=== PATIENT | female | born 1955 | race Caucasian/White ===

== ENCOUNTER 2018-03-10 09:47 | Inpatient (IN) | END 2018-03-15 16:31 | disposition home health service (06) | DRG 871 ==

== ENCOUNTER 2018-03-25 13:34 | Inpatient (IN) | END 2018-03-26 21:20 | disposition short-term general hospital (02) | DRG 872 ==

== ENCOUNTER 2018-06-23 20:30 | Inpatient (IN) | payer OTHER ==
[~2018-06-23] VITALS: Ht 157.5 cm; Wt 84.1 kg
[~2018-06-23 20:30] MED LIST: BENA40TA56 PO; FER325 PO; FURO20TA3 PO; GABA300C16 PO; LEVO50TA7 PO; MTF1000T PO; NPH,100I5 SQ; OMEP20CA16 PO; PROP10TA6 PO; SIMV20TA PO
[2018-06-23] MEDS ORDERED: SODIUM CHLORIDE 0.9% 1L BAG IV* STA (21:34)
--- NOTE | 2018-06-23 22:00 | ERD ---
ER Documentation Chief Complaint Chief Complaint FLU SYMPTOMS/ HEMOPTYSIS HPI This is a 63-year-old female with a past medical history of hypertension, hyperlipidemia, diabetes, CHF, GERD, hypothyroidism who is presenting with several days of feeling generally unwell with fever, chills, full body aches, nausea with multiple episodes of nonbilious nonbloody vomiting, decreased appetite, waxing and waning episodes of confusion. The patient's daughter and her child was recently sick with the flu, and they have been around the patient. The patient is currently alert and oriented. The patient also reports suprapubic abdominal pain with dysuria, urinary frequency and urgency. She denies diarrhea. The patient has also had a productive cough of mostly clear sputum. However, she apparently had an episode of coughing up phlegm with flecks of blood this evening, which is ultimately what prompted them to bring her to the emergency department. The patient has not had any recent travel. She does not have a history of tuberculosis. The patient does not endorse any alleviating or exacerbating factors. The patient has had no headache or vision changes. The patient does not endorse neck or back pain. The patient denies lightheadedness or dizziness. The patient has had no chest pain or trouble breathing. The patient has had no focal deficits. The patient has had no weakness or numbness or tingling to the face or extremities. ROS All systems reviewed and are negative except as per history of present illness. Medications Home Meds Reported Medications Propranolol Hcl* (Propranolol Hcl*) 10 Mg Tablet, 10 MG PO BID, TAB 03/25/18 NPH, Human Insulin Isophane (Humulin N Kwikpen) 100 Unit/1 Ml Insuln.pen, 30 UNIT SQ BID, EA 03/10/18 Metformin* (Glucophage*) 1,000 Mg Tablet, 1000 MG PO BID, #60 TAB 03/10/18 Furosemide* (Furosemide*) 20 Mg Tablet, 20 MG PO DAILY, #60 TAB 03/10/18 Levothyroxine Sodium* (Levothyroxine Sodium*) 50 Mcg Tablet, 50 MCG PO BEFORE BREAKFAST, #30 TAB 03/10/18 Ferrous Sulfate* (Ferrous Sulfate*) 325 Mg Tabec, 325 MG PO BID, TAB 03/10/18 Benazepril Hcl* (Benazepril Hcl*) 40 Mg Tablet, 40 MG PO DAILY, #30 TAB 03/10/18 Simvastatin* (Zocor*) 20 Mg Tablet, 20 MG PO QHS, #30 TAB 03/10/18 Omeprazole* (Omeprazole*) 20 Mg Capsule.dr, 20 MG PO AC BREAKFAST, #30 CAP 03/10/18 Gabapentin* (Gabapentin*) 300 Mg Capsule, 300 MG PO TID, #90 CAP 03/10/18 Allergies Allergies: Coded Allergies: Penicillins (Verified Allergy, Unknown, 03/25/18) PMhx/Soc History of Surgery: Yes (CHOLECYSTECTOMY) Anesthesia Reaction: Yes (RASH) Hx Neurological Disorder: No Hx Respiratory Disorders: Yes (ASTHMA) Hx Cardiac Disorders: Yes (Hypertension, hyperlipidemia, diabetes) Hx Psychiatric Problems: Yes (ANXIETY) Hx Miscellaneous Medical Probl: Yes (Hypothyroidism, GERD, diabetic neuropathy) Hx Alcohol Use: No Hx Substance Use: No Hx Tobacco Use: No Smoking Status: Never smoker FmHx Family History: No diabetes Physical Exam Vitals Vital Signs Date Temp Pulse Resp B/P (MAP) Pulse Ox O2 O2 Flow FiO2 Time Delivery Rate 06/23/18 Nasal 22:10 Cannula 06/23/18 102.6 99 18 162/70 96 Room Air 21:28 (100) 06/23/18 102.7 85 18 162/70 95 20:40 (100) Physical Exam Const: No apparent distress, well-developed, well-nourished Head: Normocephalic, Atraumatic Eyes: Normal Conjunctiva. Extraocular movements intact. Pupils equal, round and reactive to light ENT: Normal External Ears, Nose and Mouth. Neck: Full range of motion. No meningismus. Resp: Clear to auscultation bilaterally, No wheezes, rales or rhonchi Cardio: Regular rate and rhythm. No murmurs, rubs or gallops Abd: Soft, non tender, non distended. Normal bowel sounds Skin: No petechiae or rashes Back: No midline tenderness. No CVA tenderness Ext: No cyanosis, or edema Neur: Awake and alert, oriented 4. Cranial nerves intact. No facial droop. Normal strength, sensation and coordination. Psych: Normal Mood and Affect Result Diagram: 06/23/186 06/23/186 Results 24 hrs Laboratory Tests Test 06/23/18 22:16 06/23/18 22:40 06/24/18 01:13 White Blood Count 7.6 10^3/ul Red Blood Count 4.90 10^6/ul Hemoglobin 15.0 g/dl Hematocrit 45.2 % Mean Corpuscular Volume 92.2 fl Mean Corpuscular Hemoglobin 30.6 pg Mean Corpuscular 33.2 g/dl Hemoglobin Concent Red Cell Distribution Width 16.5 % Platelet Count 97 10^3/UL Mean Platelet Volume 11.8 fl Immature Granulocytes % 0.300 % Neutrophils % 76.9 % Lymphocytes % 10.5 % Monocytes % 11.5 % Eosinophils % 0.3 % Basophils % 0.5 % Nucleated Red Blood Cells % 0.0 /100WBC Immature Granulocytes # 0.020 10^3/ul Neutrophils # 5.9 10^3/ul Lymphocytes # 0.8 10^3/ul Monocytes # 0.9 10^3/ul Eosinophils # 0.0 10^3/ul Basophils # 0.0 10^3/ul Nucleated Red Blood Cells # 0.0 10^3/ul Prothrombin Time 14.7 Sec Prothrombin Time Ratio 1.1 INR International Normalized Ratio 1.14 Activated Partial Thromboplast 34.8 Sec Time Sodium Level 134 mmol/L Potassium Level 4.3 mmol/L Chloride Level 99 mmol/L Carbon Dioxide Level 26 mmol/L Anion Gap 9 Blood Urea Nitrogen 13 mg/dl Creatinine 0.58 mg/dl Est Glomerular Filtrat Rate mL/min > 60 mL/min Glucose Level 150 mg/dl Calcium Level 9.4 mg/dl Total Bilirubin 1.9 mg/dl Direct Bilirubin 0.00 mg/dl Indirect Bilirubin 1.9 mg/dl Aspartate Amino Transf (AST/SGOT) 71 IU/L Alanine 41 IU/L Aminotransferase (ALT/SGPT) Alkaline Phosphatase 162 IU/L Troponin I < 0.012 ng/ml Total Protein 9.3 g/dl Albumin 4.0 g/dl Globulin 5.30 g/dl Albumin/Globulin Ratio 0.75 POC Venous Lactate 2.2 mmol/L 2.2 mmol/L Current Medications Medications Dose Sig/Magali Start Time Status Last (Trade) Ordered Route PRN Stop Time Admin Dose Reason Admin Sodium 2,460 ml BOLUS OVER 2 06/23/18 DC 06/23/18 Chloride HOURS STAT 21:34 21:34 (NS) IV* 06/23/18 21:35 150 ml @ ONCE ONCE 06/23/18 DC 06/23/18 Levofloxacin/ 100 mls/hr IVPB 23:30 23:32 Dextrose 06/24/18 00:59 Oseltamivir 75 mg ONCE ONCE 06/23/18 DC 06/23/18 Phosphate PO 23:30 23:31 (Tamiflu) 06/23/18 23:31 Ketorolac 15 mg ONCE STAT 06/24/18 DC Tromethamine IV 01:16 (Toradol) 06/24/18 01:18 1,000 mg ONCE STAT 06/24/18 DC Acetaminophen PO 01:16 (Tylenol 06/24/18 01:18 Tab) Procedures/MDM MDM The patient's presentation warrants further investigation. Previous medical records, if available, were reviewed. LABS The patient's laboratory testing was obtained and reviewed. No emergent treatment was required unless described below. CBC: No E/o of systemic infection or severe anemia. Thrombocytopenia CMP: No E/o severe acidosis or alkalosis or renal failure or diabetic ketoacidosis. Indirect hyperbilirubinemia and transaminitis. PT/INR: No E/o significant coagulopathy Lactate: Mildly elevated x2 Troponin: No E/o acute ischemia Urine: No E/o acute infection or hematuria Influenza: Negative EKG EKG read by me: Rate/Rhythm: Regular rate and rhythm at a rate of 91 bpm Intervals: Normal [place]: Normal Impression: No evidence of acute ischemia or arrhythmia IMAGING Imaging and Radiology interpretation reviewed. CXR FINDINGS: Mildly increased interstitial edema/infiltrate. No pleural effusion. No pneumothorax. Heart size is magnified. Vascular calcifications of the aorta are present compatible with atherosclerosis. IMPRESSION: Mildly increased interstitial edema/infiltrate. Electronically viewed and signed by Kit Martinez MD, on 06/23/2018 23:01 TREATMENT/DISPOSITION The patient presents with flulike symptoms. There is evidence of possible infiltrates on the chest x-ray. Given the report of an episode of hemoptysis, there is a possibility of pneumonia. The patient was given a dose of Levaquin in the emergency department. The patient was evaluated for the possibility of sepsis. The patient did have a fever, but her vital signs were otherwise unremarkable and she had no leukocytosis. The patient technically does not meet criteria for systemic inflammatory response. That said, the patient did have a mildly elevated lactic acidosis and is thrombocytopenic. The patient does meet criteria for severe sepsis. A septic workup was completed. All the patient's influenza studies are negative, the patient's symptoms are very concerning for the flu, especially since she had multiple sick contacts that were diagnosed with the flu this week. The patient will also be given a dose of Tamiflu. The patient's fever was treated with Toradol and Tylenol. SEPSIS NOTE SIRS Criteria: Fever only Infectious source: Pneumonia versus influenza End organ damage indicated by: Lactate > 2.0 mmol/L, Plt < 100 SEPSIS MANAGEMENT Time to recognize sepsis: 2300 Time to recognize severe sepsis: 2300 Time to recognize septic shock: No septic shock at this time. 3 HOUR BUNDLE Blood cultures x 2 before abx: Yes 30 ml/kg NS bolus completed Initial lactate 2.2 Repeat lactate 2.2 SEPTIC SHOCK ASSESSMENT: NO lactic acid > 4.0 NO persistent hypotension (SBP < 90 or 40 mmHg drop, MAP < 65) despite 30 L/kg IV fluid bolus CRITICAL CARE Critical care time 35 minutes Emergent fluid management while maintaining close respiratory support. Provision of immediate and broad-spectrum antibiotic therapy. Simultaneous assessment for possible sources in order to direct targeted therapy. Consideration for invasive and chemical support to prevent cardiopulmonary collapse. Critical care time is independent of procedures performed. ADMISSION The patient will be admitted to panel in accordance with the patient's insurance. The patient was accepted by Dr. Arvizu at 1:18 AM on June 24, 2018. Disclaimer: Inadvertent spelling and grammatical errors are likely due to EHR/dictation software use and do not reflect on the overall quality of patient care. Note that the electronic time recorded on this note does not necessarily reflect the actual time of the patient encounter. Departure Diagnosis: Primary Impression: Severe sepsis Additional Impressions: Flu-like symptoms Myalgia Fever and chills Nausea & vomiting Vomiting type: unspecified Vomiting Intractability: non-intractable Qualified Codes: R11.2 - Nausea with vomiting, unspecified Suprapubic pain Dysuria Hemoptysis Lactic acidosis Thrombocytopenia Hyperbilirubinemia Transaminitis Condition: Serious TED TUTTLE MD Jun 23, 2018 21:59
[2018-06-23] MEDS ORDERED: OSELTAMIVIR 75 MG CAP PO ONE (23:30)
[2018-06-23] MEDS ORDERED: LEVOFLOXACIN 750MG/D5W (PMX) 150 ML IVPB ONE (23:30)
[2018-06-24] VITALS (8 sets, daily range): BP systolic 112–134; BP diastolic 55–80; PULSE 66–81; RESP 18–20; Ht 157.5 cm; Wt 84.1 kg
[2018-06-24] MEDS ORDERED: KETOROLAC 15 MG INJ IV STA (01:16)
[2018-06-24] MEDS ORDERED: ACETAMINOPHEN 500 MG TAB PO STA (01:16)
[2018-06-24] MEDS ORDERED: ACETAMINOPHEN 325 MG TAB PO PRN ×2 (01:30→02:30)
[2018-06-24] MEDS ORDERED: ONDANSETRON 4 MG INJ IV PRN ×2 (01:30→02:30)
[2018-06-24] MEDS ORDERED: SOD CHLORIDE 0.9% 1,000 ML IV SCH (02:27)
[2018-06-24] MEDS ORDERED: DOCUSATE SODIUM 100 MG CAP PO PRN (02:30)
[2018-06-24] MEDS ORDERED: BISACODYL (EC) 5 MG TAB PO PRN (02:30)
[2018-06-24] MEDS ORDERED: NACL 0.9% 3 ML SYG IV SCH (02:30)
[2018-06-24] MEDS ORDERED: HYDROCODONE/APAP (5/325) TAB PO PRN (02:30)
--- NOTE | 2018-06-24 02:34 | HP ---
Date/Time of Note Date/Time of Note DATE: 06/24/18 TIME: 02:32 Assessment/Plan VTE Prophylaxis SCD applied (from Nsg): Yes Pharmacological prophylaxis: NA/contraindicated Pharm contraindication: low risk/ambulating Lines/Catheters IV Catheter Type (from Nrsg): Saline Lock Assessment/Plan Hospital Course This is a 63-year-old female being admitted to the telemetry floor for: #1 severe sepsis: Multifactorial secondary to pneumonia/urinary tract infection. Patient was started on Levaquin 750 mg IV daily. Will await culture results. Previous urine culture Positive for Morganella morganii which was sensitive to Levaquin. Trend lactic acid level initially was 2.2 #2 cirrhosis with history of varices and portal hypertension: Patient at the current time does not appear to be encephalopathic. Possibly secondary to previous alcohol use. Hepatitis serology appears normal from previous admission. Continue propranolol #3 history of epilepsy: Appear to be on Keppra during previous admissions [facility] er currently is not on her EMR. I will continue her on her previous dose. We will need to confirm whether in the morning whether she is indeed still taking this or not. #4. Diabetes: We will check hemoglobin A1c, insulin sliding scale, resume home insulin #5. Hypertension: Resume home medications #6. Morbid obesity: We will check hemoglobin A1c , TSH, #7. Hypothyroidism: We will check TSH, resume levothyroxine #8. History of CVA: Continue statin #9. 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 Coagulopathy secondary to liver disease Prophylaxis: SCDs, Protonix Result Diagram: 06/23/18221506/23/186 Results 24hrs Laboratory Tests Test 06/23/18 22:16 06/23/18 22:40 06/24/18 01:13 White Blood Count 7.6 Red Blood Count 4.90 # Hemoglobin 15.0 # Hematocrit 45.2 # Mean Corpuscular Volume 92.2 Mean Corpuscular Hemoglobin 30.6 Mean Corpuscular Hemoglobin Concent 33.2 Red Cell Distribution Width 16.5 H Platelet Count 97 #L Mean Platelet Volume 11.8 H Immature Granulocytes % 0.300 Neutrophils % 76.9 Lymphocytes % 10.5 L Monocytes % 11.5 H Eosinophils % 0.3 Basophils % 0.5 Nucleated Red Blood Cells % 0.0 Immature Granulocytes # 0.020 Neutrophils # 5.9 Lymphocytes # 0.8 Monocytes # 0.9 Eosinophils # 0.0 Basophils # 0.0 Nucleated Red Blood Cells # 0.0 Prothrombin Time 14.7 Prothrombin Time Ratio 1.1 INR International Normalized Ratio 1.14 Activated Partial Thromboplast Time 34.8 Sodium Level 134 L Potassium Level 4.3 Chloride Level 99 Carbon Dioxide Level 26 Anion Gap 9 Blood Urea Nitrogen 13 Creatinine 0.58 Est Glomerular Filtrat Rate mL/min > 60 Glucose Level 150 Calcium Level 9.4 Total Bilirubin 1.9 H Direct Bilirubin 0.00 Indirect Bilirubin 1.9 H Aspartate Amino Transf (AST/SGOT) 71 H Alanine Aminotransferase (ALT/SGPT) 41 Alkaline Phosphatase 162 H Troponin I < 0.012 Total Protein 9.3 H Albumin 4.0 Globulin 5.30 H Albumin/Globulin Ratio 0.75 POC Venous Lactate 2.2 *H 2.2 *H HPI/ROS Admit Date/Time Admit Date/Time Hx of Present Illness Chief complaint: Fever chills body aches cough, dysuria This is a 63-year-old female with several days of feeling generally unwell with fever, chills, full body aches, nausea with multiple episodes of nonbilious nonbloody vomiting, decreased appetite, waxing and waning episodes of confusion. The patient's daughter and her child was recently sick with the flu, and they have been around the patient. The patient is currently alert and oriented. The patient also reports suprapubic abdominal pain with dysuria, urinary frequency and urgency. She denies diarrhea. The patient has also had a productive cough of mostly clear sputum. However, she apparently had an episode of coughing up phlegm with flecks of blood this evening, which is ultimately what prompted them to bring her to the emergency department. The patient has not had any recent travel. The patient does not endorse any alleviating or exacerbating factors. Allergies: Penicillin Medications: See Jun Const: As per HPI Eyes : No pain discharge or redness or change in visual acuity ENT: No pain, sore throat, congestion, congestion, dysphagia or discharge Respiratory: As per HPI Cardiovascular: No chest pain, palpitation, PND, or edema GI : no change in appetite, abdominal pain, nausea, vomiting, diarrhea, constipation, or change in the color his stool Genitourinary: As per HPI Musculoskeletal: As per HPI Skin: No rash, bruising or hives Neuro: No headache, dizziness, syncope, seizure, focal weakness Endocrine: No polyuria, polydipsia, temperature intolerance Psych: No hallucination, depression, anxiety or suicidal ideation PMH/Family/Social Past Medical History gastric ulcers, diabetes mellitus, epilepsy, dyslipidemia, hypertension, Cirrhosis with history of varices and portal hypertension Medications Current Medications Ondansetron HCl (Zofran Inj) 4 mg ER BRIDGE PRN IV NAUSEA/VOMITING; Start 06/24/18 at 01:30; Stop 06/25/18 at 01:29 Acetaminophen (Tylenol Tab) 650 mg ER BRIDGE PRN PO .MILD PAIN 1-3 OR TEMP; Start 06/24/18 at 01:30; Stop 06/25/18 at 01:29 Propranolol HCl (Inderal) 10 mg BID PO ; Start 06/24/18 at 09:00; Status UNV Coded Allergies: Penicillins (Verified Allergy, Unknown, 03/25/18) Past Surgical History Past Surgical Hx: appendectomy, cholecystectomy Family History Significant Family History: no pertinent family hx Social History Alcohol Use: sober Smoking Status: Never smoker Drug Use: none Exam/Review of Systems Vital Signs Vitals Vital Signs Date Temp Pulse Resp B/P (MAP) Pulse Ox O2 O2 Flow FiO2 Time Delivery Rate 06/24/18 102.8 01:28 06/24/18 97 142/94 98 Nasal 2.0 01:00 (110) Cannula 06/23/18 18 21:28 Intake and Output 06/23/18 06/23/18 06/24/18 1515:00 23:00 07:00 IntakeIntake Total 2460 ml BalanceBalance 2460 ml Exam Exam General: Patient is currently lying in bed in no acute distress, she does report suprapubic pain HEENT: Atraumatic, normocephalic. The pupils are equal, round and reactive. Extraocular motor are intact Neck: Supple with full range of motion. No rigidity or meningismus Chest: Nontender Lungs: Clear to auscultation bilaterally no crackles rales or wheezing Heart: Normal S1-S2, Regular rhythm and rate. No murmur, S3, or S4 Abdomen: Soft , nontender, nondistended , bowel sounds are present. No guarding no rebound tenderness , No masses or organomegaly. No costovertebral temporal angle mass Extremities: Normal to inspection, no edema no cyanosis Genitourinary: Suprapubic tenderness to palpation Neurologic: Normal mental status, speech normal, cranial nerves II through XII are intact, motor and sensory are intact, Additional Comments PROCEDURE: XR Chest. CLINICAL INDICATION: Chest pain, sepsis TECHNIQUE: Single frontal radiograph of the chest. COMPARISON: CHEST 03/25/2018 FINDINGS: Mildly increased interstitial edema/infiltrate. No pleural effusion. No pneumothorax. Heart size is magnified. Vascular calcifications of the aorta are present compatible with atherosclerosis. IMPRESSION: Mildly increased interstitial edema/infiltrate. RPTAT: AADD .Kit Martinez MD, MD Date Time Electronically viewed and signed by .Kit Martinez MD, MD on 06/23/2018 23:01 .B/ CC: TED TUTTLE MD [id number] EKG Rate/Rhythm: Regular rate and rhythm at a rate of 91 bpm Intervals: Normal [place]: Normal Impression: No evidence of acute ischemia or arrhythmia VALENTINE STROUD Jun 24, 2018 02:33
[2018-06-24] MEDS ORDERED: GLUCAGON 1 MG INJ IM PRN (03:00)
[2018-06-24] MEDS ORDERED: GLUCOSE GEL 15 GRAM TUBE BUCCAL PRN (03:00)
[2018-06-24] MEDS ORDERED: DEXTROSE 50% 50 ML SYRINGE IV PRN ×2 (03:00)
[2018-06-24] MEDS ORDERED: GLUCOSE GEL 15 GRAM TUBE PO PRN ×2 (03:00)
[2018-06-24] MEDS: PANTOPRAZOLE (EC) 40 MG TAB PO SCH (06:32)
[2018-06-24] MEDS: LEVOTHYROXINE 50 MCG TAB PO SCH (06:32)
[2018-06-24] MEDS ORDERED: NON-FORMULARY/PATIENT OWN MED (Omeprazole* 20 MG) PO SCH (07:00)
[2018-06-24] MEDS: INSULIN ASPART [NOVOLOG] 3 ML PEN SC SCH ×4 (07:55→21:00)
[2018-06-24] MEDS: BENAZEPRIL 40 MG TAB PO SCH (08:37)
[2018-06-24] MEDS: LEVETIRACETAM 500 MG TAB PO SCH ×2 (08:37→20:49)
[2018-06-24] MEDS: GABAPENTIN 300 MG CAP PO SCH ×3 (08:37→20:48)
[2018-06-24] MEDS: FERROUS SULFATE (EC) 325 MG TAB PO SCH ×2 (08:37→20:48)
[2018-06-24] MEDS: PROPRANOLOL 10 MG TAB PO SCH ×2 (08:37→20:49)
[2018-06-24] MEDS ORDERED: NPH HUMAN INSULIN ISOPHANE SQ SCH (09:00)
[2018-06-24] MEDS: NPH, HUMAN INSULIN ISOPHANE 3ML VIAL SC SCH ×2 (11:13→21:12)
[2018-06-24] MEDS ORDERED: MAGNESIUM SULFATE 2 GM/50 ML 50 ML IVPB ONE (12:00)
--- NOTE | 2018-06-24 12:00 | PN ---
Date/Time of Note Date/Time of Note DATE: 06/24/18 TIME: 11:53 Assessment/Plan VTE Prophylaxis Risk score (from Ns)>0 risk: 6 [place] [facility] [place] Pharmacological prophylaxis: NA/contraindicated Pharm contraindication: low risk/ambulating Lines/Catheters IV Catheter Type (from [facility]): [place] Assessment/Plan Assessment/Plan This is a 63-year-old woman with cirrhosis who presents with sepsis likely from UTI #Urinary tract infection # severe sepsis: - Sepsis likely due to UTI - No infiltrates on CXR concerning for lobar pneumonia. - Awaiting urine culture results. - Lactate moderately elevated - Currently appears euvolemic. Will cancel maintenance fluids due to cirrhosis. # cirrhosis with history of varices and portal hypertension: - Patient at the current time does not appear to be encephalopathic. - Possibly secondary to previous alcohol use versus CASTELLANO, hepatitis serology appears normal from previous admission. - Continue propranolol # history of epilepsy: - Appear to be on Keppra during previous admissions however currently is not on her EMR. 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 Patient sleeping comfortably. She does report occasional wheeze plus dry cough. Otherwise feeling well overall. Exam/Review of Systems Exam Vitals Vital Signs Date Temp Pulse Resp B/P (MAP) Pulse Ox O2 O2 Flow FiO2 Time Delivery Rate 06/24/18 81 08:13 06/24/18 98.1 18 120/80 93 Room Air 07:55 (93) 06/24/18 2.0 05:00 Intake and Output 06/23/18 06/23/18 06/24/18 1515:00 23:00 07:00 IntakeIntake Total 2460 ml OutputOutput Total 125 ml BalanceBalance 2335 ml Exam General: Obese woman lying bed sleeping comfortably, arousable. HEENT: Atraumatic, normocephalic. The pupils are equal, round and reactive. Extraocular motor are intact Neck: Supple with full range of motion. No rigidity or meningismus Chest: Nontender Lungs: Clear to auscultation bilaterally no crackles rales or wheezing Heart: Normal S1-S2, Regular rhythm and rate. No murmur, S3, or S4 Abdomen: Soft , nontender, nondistended , bowel sounds are present. No guarding no rebound tenderness , Extremities: Normal to inspection, trace bilateral LE edema Results Results 24hrs Laboratory Tests Test 06/23/18 22:16 06/23/18 22:40 06/24/18 01:13 06/24/18 03:20 White Blood Count 7.6 Red Blood Count 4.90 # Hemoglobin 15.0 # Hematocrit 45.2 # Mean Corpuscular 92.2 Volume Mean Corpuscular 30.6 Hemoglobin Mean Corpuscular 33.2 Hemoglobin Concent Red Cell 16.5 H Distribution Width Platelet Count 97 #L Mean Platelet Volume 11.8 H Immature 0.300 Granulocytes % Neutrophils % 76.9 Lymphocytes % 10.5 L Monocytes % 11.5 H Eosinophils % 0.3 Basophils % 0.5 Nucleated Red Blood 0.0 Cells % Immature 0.020 Granulocytes # Neutrophils # 5.9 Lymphocytes # 0.8 Monocytes # 0.9 Eosinophils # 0.0 Basophils # 0.0 Nucleated Red Blood 0.0 Cells # Prothrombin Time 14.7 Prothrombin Time 1.1 Ratio INR International 1.14 Normalized Ratio Activated 34.8 Partial Thromboplast Time Urine Color YELLOW Urine Clarity CLEAR Urine pH 7.0 Urine Specific 1.019 [place] Urine Ketones TRACE A Urine Nitrite NEGATIVE Urine Bilirubin NEGATIVE Urine Urobilinogen 2+ H Urine Leukocyte 2+ H Esterase Urine Microscopic 19 H RBC Urine Microscopic 40 H WBC Urine Hemoglobin NEGATIVE Urine Glucose NEGATIVE Urine Total Protein NEGATIVE Sodium Level 134 L Potassium Level 4.3 Chloride Level 99 Carbon Dioxide Level 26 Anion Gap 9 Blood Urea Nitrogen 13 Creatinine 0.58 Est Glomerular > 60 Filtrat Rate mL/min Glucose Level 150 Calcium Level 9.4 Total Bilirubin 1.9 H Direct Bilirubin 0.00 Indirect Bilirubin 1.9 H Aspartate Amino 71 H Transf (AST/SGOT) Alanine 41 Aminotransferase (AL T/SGPT) Alkaline Phosphatase 162 H Troponin I < 0.012 Total Protein 9.3 H Albumin 4.0 Globulin 5.30 H Albumin/Globulin 0.75 Ratio POC Venous Lactate 2.2 *H 2.2 *H Lactic Acid Level 1.7 Test 06/24/18 03:30 06/24/18 05:42 06/24/18 08:01 06/24/18 10:06 Bedside Glucose 193 210 176 White Blood Count 6.9 Red Blood Count 4.15 L Hemoglobin 13.0 Hematocrit 38.5 Mean Corpuscular 92.8 Volume Mean Corpuscular 31.3 Hemoglobin Mean Corpuscular 33.8 Hemoglobin Concent Red Cell 16.6 H Distribution Width Platelet Count 83 L Mean Platelet Volume 11.8 H Immature 0.400 Granulocytes % Neutrophils % 76.2 Lymphocytes % 10.8 L Monocytes % 12.1 H Eosinophils % 0.1 Basophils % 0.4 Nucleated Red Blood 0.0 Cells % Immature 0.030 Granulocytes # Neutrophils # 5.2 Lymphocytes # 0.7 L Monocytes # 0.8 Eosinophils # 0.0 Basophils # 0.0 Nucleated Red Blood 0.0 Cells # Sodium Level 133 L Potassium Level 4.7 Chloride Level 103 Carbon Dioxide Level 22 Anion Gap 8 Blood Urea Nitrogen 14 Creatinine 0.48 Est Glomerular > 60 Filtrat Rate mL/min Glucose Level 212 Hemoglobin A1c 8.4 H Lactic Acid Level 2.1 *H Calcium Level 8.2 L Magnesium Level 1.1 L Total Bilirubin 1.6 H Direct Bilirubin 0.00 Indirect Bilirubin 1.6 H Aspartate Amino 75 H Transf (AST/SGOT) Alanine 41 Aminotransferase (AL T/SGPT) Alkaline Phosphatase 112 Ammonia 29 Total Protein 7.5 # Albumin 3.0 #L Globulin 4.50 H Albumin/Globulin 0.66 Ratio Triglycerides Level 81 Cholesterol Level 200 LDL Cholesterol, 137 Calculated HDL Cholesterol 47 Cholesterol/HDL 4.2 Ratio Thyroid Stimulating 1.750 Hormone (TSH) Test 06/24/18 11:01 Lactic Acid Level 1.7 Medications Medication Current Medications Ondansetron HCl (Zofran Inj) 4 mg ER BRIDGE PRN IV NAUSEA/VOMITING; Start 06/24/18 at 01:30; Stop 06/25/18 at 01:29 Acetaminophen (Tylenol Tab) 650 mg ER BRIDGE PRN PO .MILD PAIN 1-3 OR TEMP; S tart 06/24/18 at 01:30; Stop 06/25/18 at 01:29 Benazepril HCl (Lotensin) 40 mg DAILY PO Last administered on 06/24/18at 08:37; Admin Dose 40 MG; Start 06/24/18 at 09:00 Ferrous Sulfate (Ferrous Sulfate (Ec)) 325 mg BID PO Last administered on 06/24/18at 08:37; Admin Dose 325 MG; Start 06/24/18 at 09:00 Gabapentin (Neurontin) 300 mg TID PO Last administered on 06/24/18at 08:37; Admin Dose 300 MG; Start 06/24/18 at 09:00 Levothyroxine Sodium (Synthroid) 50 mcg BEFORE BREAKFAST PO Last administered on 06/24/18at 06:32; Admin Dose 50 MCG; Start 06/24/18 at 07:00 Propranolol HCl (Inderal) 10 mg BID PO Last administered on 06/24/18at 08:37; Admin Dose 10 MG; Start 06/24/18 at 09:00 Diagnostic Test (Pha) (Accu-Chek) 1 ea 02 XX ; Start 06/25/18 at 02:00 Insulin Aspart (Novolog Insulin Pen) NOVOLOG *MILD* ALGORITHM WITH MEALS BEDTIME SC ; Start 06/24/18 at 07:55 Sodium Chloride 1,000 ml @ 100 mls/hr Q10H IV Last administered on 06/24/18at 06:33; Admin Dose 100 MLS/HR; Start 06/24/18 at 02:27; Stop 06/24/18 at 12:26 IV Flush (NS 3 ml) 3 ml PER PROTOCOL IV ; Start 06/24/18 at 02:30 Ondansetron HCl (Zofran Inj) 4 mg Q6H PRN IV NAUSEA/VOMITING; Start 06/24/18 at 02:30 Acetaminophen (Tylenol Tab) 650 mg Q6H PRN PO .PAIN 1-3 OR TEMP; Start 06/24/18 at 02:30 Acetaminophen/ Hydrocodone Bitart ([place] (5/325)) 1 tab Q6H PRN PO .PAIN 4-6; Start 06/24/18 at 02:30 Docusate Sodium (Colace) 100 mg Q12H PRN PO .CONSTIPATION; Start 06/24/18 at 02:30 Bisacodyl (Dulcolax) 5 mg DAILY PRN PO .CONSTIPATION; Start 06/24/18 at 02:30 Levofloxacin/ Dextrose 150 ml @ 100 mls/hr Q24H IVPB ; Start 06/24/18 at 22:00; Stop 06/28/18 at 21:59 Pantoprazole (Protonix Tab) 40 mg AC BREAKFAST PO Last administered on 06/24/18at 06:32; Admin Dose 40 MG; Start 06/24/18 at 07:00 Miscellaneous Information 1 ea NOTE XX ; Start 06/24/18 at 03:00 Glucose (Glutose) 15 gm Q15M PRN PO DECREASED GLUCOSE; Start 06/24/18 at 03:00 Glucose (Glutose) 22.5 gm Q15M PRN PO DECREASED GLUCOSE; Start 06/24/18 at 03:00 Dextrose (D50w Syringe) 25 ml Q15M PRN IV DECREASED GLUCOSE; Start 06/24/18 at 03:00 Dextrose (D50w Syringe) 50 ml Q15M PRN IV DECREASED GLUCOSE; Start 06/24/18 at 03:00 Glucagon (Glucagen) 1 mg Q15M PRN IM DECREASED GLUCOSE; Start 06/24/18 at 03:00 Glucose (Glutose) 15 gm Q15M PRN BUCCAL DECREASED GLUCOSE; Start 06/24/18 at 03:00 Atorvastatin Calcium (Lipitor) 10 mg DAILY@21 PO ; Start 06/24/18 at 21:00 Insulin Human NPH (Humulin N) 30 unit BID SC Last administered on 06/24/18at 11:13; Admin Dose 30 UNIT; Start 06/24/18 at 09:00 Levetiracetam (Keppra) 500 mg BID PO Last administered on 06/24/18at 08:37; Admin Dose 500 MG; Start 06/24/18 at 09:00 Magnesium Sulfate 50 ml @ 25 mls/hr ONCE ONCE IVPB ; Start 06/24/18 at 12:00; Stop 06/24/18 at 13:59; Status UNRADHA CHAMBERLAIN MD Jun 24, 2018 12:00
[2018-06-24] MEDS ORDERED: ATORVASTATIN 10 MG TAB PO SCH (21:00)
[2018-06-24] MEDS ORDERED: NON-FORMULARY/PATIENT OWN MED (Simvastatin* (Zocor*) 20 MG) PO SCH (21:00)
[2018-06-24] MEDS ORDERED: LEVOFLOXACIN 750MG/D5W (PMX) 150 ML IVPB SCH (22:00)
[2018-06-25] VITALS (8 sets, daily range): BP systolic 116–134; BP diastolic 56–63; PULSE 50–72; RESP 16–18
[2018-06-25] MEDS ORDERED: ACCU-CHEK XX SCH (02:00)
[2018-06-25] MEDS: LEVOTHYROXINE 50 MCG TAB PO SCH (06:19)
[2018-06-25] MEDS: PANTOPRAZOLE (EC) 40 MG TAB PO SCH (06:19)
[2018-06-25] MEDS: INSULIN ASPART [NOVOLOG] 3 ML PEN SC SCH ×2 (07:54→12:16)
[2018-06-25] MEDS: FERROUS SULFATE (EC) 325 MG TAB PO SCH (08:06)
[2018-06-25] MEDS: PROPRANOLOL 10 MG TAB PO SCH (08:07)
[2018-06-25] MEDS: LEVETIRACETAM 500 MG TAB PO SCH (08:07)
[2018-06-25] MEDS: GABAPENTIN 300 MG CAP PO SCH ×2 (08:07→12:07)
[2018-06-25] MEDS: BENAZEPRIL 40 MG TAB PO SCH (08:07)
[2018-06-25] MEDS: NPH, HUMAN INSULIN ISOPHANE 3ML VIAL SC SCH (08:08)
--- NOTE | 2018-06-25 11:53 | PDOCDIS ---
Discharge Instructions CONDITION [id number] Patient Condition: [id number] Stable HOME CARE INSTRUCTIONS: [id number] Diet Instructions: [id number] Low Fat /Cholesterol ACTIVITY: [id number] Activity Restrictions: [id number] Slowly Increase Activity Rest between Activity Avoid heavy lifting FOLLOW UP/APPOINTMENTS Follow-up Plan Please take your medications as prescribed, see your doctor in the clinic in the next 1 week. KARINA TRUONG Jun 25, 2018 11:52
[2018-06-25] MEDS ORDERED: BENZ1LOZ52 MM (11:56)
[2018-06-25] MEDS ORDERED: FLUC100T PO (11:56)
[2018-06-25] MEDS ORDERED: LEVO500T48 PO (11:56)
[2018-06-25] MEDS ORDERED: FLUCONAZOLE 100 MG TAB PO SCH (12:00)
--- NOTE | 2018-06-25 12:04 | DS ---
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 The patient's daughter and her child was recently sick with the flu, and they have been around the patient. The patient is currently alert and oriented. The patient also reports suprapubic abdominal pain with dysuria, urinary frequency and urgency. She denies diarrhea. The patient has also had a productive cough of mostly clear sputum. However, she apparently had an episode of coughing up phlegm with flecks of blood this evening, which is ultimately what prompted them to bring her to the emergency department. The patient has not had any recent travel. The patient does not endorse any alleviating or exacerbating factors. Hospital Course Patient was admitted, found with severe sepsis, likely secondary to UTI and mild upper respiratory infection. The symptoms improved, patient found with Kathrine urinary tract infection. On the day of discharge started on fluconazole. Over the course of her hospital stay her cough symptoms improved, no fevers. White blood cell count was stable. She was given antitussive medications will help control her cough. She had some repletion of some low magnesium. A1c was 8.4, sugars were stable with doses of insulin and regimen given here while in the hospital. Because the patient is clinically improved, she will be discharged home today and in improved condition, and she will go home with antifungal medicine and antibacterial. See below for full list of discharge medications. Home Meds Active Scripts Benzocaine/Menthol* (Cepacol* Sore Throat Lozenges) 1 Each Lozenge, 1 EACH MM q2h PRN for SORE THROAT, #1 BOTTLE Prov:KARINA TRUONG S. 06/25/18 Levofloxacin* (Levaquin*) 500 Mg Tablet, 500 MG PO DAILY for 4 Days, TAB Prov:KARINA TRUONG S. 06/25/18 Fluconazole* (Diflucan*) 100 Mg Tablet, 100 MG PO DAILY, #5 TAB Prov:KARINA TRUONG S. 06/25/18 Reported Medications Propranolol Hcl* (Propranolol Hcl*) 10 Mg Tablet, 10 MG PO BID, TAB 03/25/18 NPH, Human Insulin Isophane (Humulin N Kwikpen) 100 Unit/1 Ml Insuln.pen, 30 UNIT SQ BID, EA 03/10/18 Metformin* (Glucophage*) 1,000 Mg Tablet, 1000 MG PO BID, #60 TAB 03/10/18 Furosemide* (Furosemide*) 20 Mg Tablet, 20 MG PO DAILY, #60 TAB 03/10/18 Levothyroxine Sodium* (Levothyroxine Sodium*) 50 Mcg Tablet, 50 MCG PO BEFORE BREAKFAST, #30 TAB 03/10/18 Ferrous Sulfate* (Ferrous Sulfate*) 325 Mg Tabec, 325 MG PO BID, TAB 03/10/18 Benazepril Hcl* (Benazepril Hcl*) 40 Mg Tablet, 40 MG PO DAILY, #30 TAB 03/10/18 Simvastatin* (Zocor*) 20 Mg Tablet, 20 MG PO QHS, #30 TAB 03/10/18 Omeprazole* (Omeprazole*) 20 Mg Capsule.dr, 20 MG PO AC BREAKFAST, #30 CAP 03/10/18 Gabapentin* (Gabapentin*) 300 Mg Capsule, 300 MG PO TID, #90 CAP 03/10/18 Follow-up Plan Please take your medications as prescribed, see your doctor in the clinic in the next 1 week. Primary Care Provider [facility] Time spent on discharge: > 30 minutes Pending Labs Laboratory Tests Test 06/24/18 12:19 06/24/18 17:28 06/24/18 20:47 06/25/18 05:54 Bedside 147 121 131 Glucose mg/dL (70-220) mg/dL (70-220) mg/dL (70-220) White Blood 4.9 Count 10^3/ul (4.8-1 0.8) Red Blood 4.32 Count 10^6/ul (4.20- 5.40) Hemoglobin 13.5 g/dl (12.0-16. 0) Hematocrit 39.9 % (37.0-47.0) Mean 92.4 Corpuscular fl (82.0-101.0 Volume ) Mean 31.3 Corpuscular pg (29.0-33.0) Hemoglobin Mean 33.8 Corpuscular g/dl (32.0-37. Hemoglobin Conc 0) ent Red Cell 16.2 Distribution % (11.5-14.5) Width Platelet Count 80 10^3/UL (140-4 15) Mean Platelet 11.7 Volume fl (7.4-10.4) Immature 0.400 Granulocytes % % (0.001-0.429 ) Neutrophils % 46.6 % (39.0-77.0) Lymphocytes % 36.4 % (15.0-51.0) Monocytes % 15.0 % (0.0-11.0) Eosinophils % 1.0 % (0.0-7.0) Basophils % 0.6 % (0.0-2.0) Nucleated Red 0.0 Blood Cells % /100WBC (0.0-0 .0) Immature 0.020 Granulocytes # 10^3/ul (0.0-0 .031) Neutrophils # 2.3 10^3/ul (1.6-7 .5) Lymphocytes # 1.8 10^3/ul (0.8-2 .9) Monocytes # 0.7 10^3/ul (0.3-0 .9) Eosinophils # 0.1 10^3/ul (0.0-0 .5) Basophils # 0.0 10^3/ul (0.0-0 .1) Nucleated Red 0.0 Blood Cells # 10^3/ul (0.0-0 .0) Sodium Level 137 mmol/L (135-14 4) Potassium 4.3 Level mmol/L (3.5-5. 1) Chloride Level 108 mmol/L (97-110 ) Carbon Dioxide 20 Level mmol/L (21-31) Anion Gap 9 (5-13) Blood Urea 11 Nitrogen mg/dl (7-20) Creatinine 0.48 mg/dl (0.44-1. 00) Est Glomerular > 60 Filtrat mL/min (>60) Rate mL/min Glucose Level 96 mg/dl (70-220) Calcium Level 8.1 mg/dl (8.4-10. 2) Magnesium 1.6 Level mg/dl (1.7-2.5 ) Total 0.9 Bilirubin mg/dl (0.2-1.3 ) Direct 0.00 Bilirubin mg/dl (0.00-0. 20) Indirect 0.9 Bilirubin mg/dl (0-1.1) Aspartate Amino 91 Transf (AST/SGO IU/L (15-46) T) Alanine 38 Aminotransferas IU/L (13-69) e (ALT/SGPT) Alkaline 116 Phosphatase IU/L (42-121) Total Protein 7.5 g/dl (6.1-8.1) Albumin 2.9 g/dl (3.3-4.9) Globulin 4.60 g/dl (1.3-3.2) Albumin/Globuli 0.63 n Ratio Test 06/25/18 07:53 06/25/18 11:52 Bedside 93 147 Glucose mg/dL (70-220) mg/dL (70-220) KARINA TRUONG Jun 25, 2018 12:04
[2018-06-25] MEDS ORDERED: MAGNESIUM SULFATE 1 GM/D5W 100 ML IVPB ONE (12:30)
== END 2018-06-25 18:12 | disposition home or self-care (01) | DRG 872 ==
LOC: E/R 20:30 → TEL 06-24 01:24
PROVIDERS: ADMIT Family Medicine; ATTEND Hospitalist
DX: A41.9 Sepsis, unspecified organism (principal); B37.49 Other urogenital candidiasis; D68.4 Acquired coagulation factor deficiency; K76.6 Portal hypertension; R65.20 Severe sepsis without septic shock; J06.9 Acute upper respiratory infection, unspecified; E78.5 Hyperlipidemia, unspecified; E03.9 Hypothyroidism, unspecified; K21.9 Gastro-esophageal reflux disease without esophagitis; I10 Essential (primary) hypertension; J45.909 Unspecified asthma, uncomplicated; E11.40 Type 2 diabetes mellitus with diabetic neuropathy, unspecified; K74.60 Unspecified cirrhosis of liver; G40.909 Epilepsy, unspecified, not intractable, without status epilepticus; Z86.73 Personal history of transient ischemic attack (TIA), and cerebral infarction without residual deficits; F03.90 Unspecified dementia, unspecified severity, without behavioral disturbance, psychotic disturbance, mood disturbance, and anxiety; E66.01 Morbid (severe) obesity due to excess calories; Z68.33 Body mass index [BMI] 33.0-33.9, adult; Z79.4 Long term (current) use of insulin; Z88.0 Allergy status to penicillin
CPT/HCPCS: 36415; 71045; 80053; 80061; 81001; 82140; 82962; 83036; 83605; 83735; 84443; 84484; 85025; 85610; 85730; 87040; 87086; 87400; 93005; 96365; J1815; J1885; J1956; J3475; J7030